=== PATIENT | female | born 1935 | race Caucasian/White ===

== ENCOUNTER 2018-06-09 14:05 | Emergency (ER) | payer OTHER ==
[2018-06-09 14:27] VITALS: BP 140/68; PULSE 56; TEMP 97.7; BMI 23.7
--- NOTE | 2018-06-09 14:27 | PDOC ---
Attending Attestation - Resident Resident Name: AnnieAdi - ED Attending Attestation I have performed the following: I have examined & evaluated the patient, The case was reviewed & discussed with the resident, I agree w/resident's findings & plan, Exceptions are as noted - HPI HPI: 06/09/18 15:40 Patient sustained a cut in the webspace between the second and third digits, right hand, from broken glass. This occurred last night. There is an open wound but no bleeding. No pain. No distal numbness tingling or limited motion or weakness. - Physicial Exam PE: 06/09/18 15:40 Superficial laceration of the webspace between the second and third digits right hand. Sensation in the distribution of the digital nerves intact. Full flexion and extension against resistance PIP and DIP joints. - Medical Decision Making 06/09/18 15:41 Impression: Superficial laceration of the hand Plan: X-ray shows no foreign body and no fracture. The wound was irrigated copiously with normal saline and explored, found to be superficial, with no deep punctures or deep structures involved. The skin was approximated using a snug wrap of petroleum gauze and a dressing was placed. Wound check in 2 days. Rest and elevate until then. After dressing, there was no distal numbness or tingling, no pain, and the patient was completely comfortable at discharge.
--- NOTE | 2018-06-09 14:34 | PDOC ---
History of Present Illness - General Chief Complaint: Injury Stated Complaint: INJURY TO RIGHT HAND Time Seen by Provider: 06/09/18 14:10 History Source: Patient Exam Limitations: No Limitations - History of Present Illness Initial Comments: 06/09/18 14:34 Ms. Brown is a 82 yo F with a hx of multiple cysts on the kidney with CKD stage 4, HTN, and DM who presents to the emergency department after sustaining a laceration between the 2nd and 3rd digit at the MCP joint on the right hand. She states this occurred last night at approximately 10 pm. She was turning off a light when it fell with the bulb shattering, ultimately lacerating her. Denies the following: loss of sensation, loss of motor function, digital swelling, chest pain, SOB, headache, abdominal pain, fevers, chills, and diaphoresis. Pmhx: Refer to above Shx; Hysterectomy with cystocele repair 2016 Allergies: anesthetics Past History - Past Medical History Allergies/Adverse Reactions: Allergies Allergy/AdvReac Type Severity Reaction Status Date / Time No Known Allergies Allergy Verified 06/09/18 16:28 Home Medications: Ambulatory Orders Allopurinol [Zyloprim -] 100 mg PO DAILY 06/09/18 Ezetimibe [Zetia] 10 mg PO DAILY 06/09/18 Glimepiride 1 mg PO DAILY 06/09/18 Latanoprost 0.005% Eye Drops [Xalatan 0.005% Eye Drops -] 1 drop OP HS 06/09/18 Ramipril [Altace] 10 mg PO DAILY 06/09/18 Rosuvastatin Calcium [Crestor] 40 mg PO DAILY 06/09/18 Sitagliptin Phosphate [Januvia] 25 mg PO DAILY 06/09/18 Anemia: Yes Asthma: No Cancer: No Cardiac Disorders: No CVA: No COPD: No CHF: No Dementia: No Diabetes: Yes GI Disorders: Yes (gerd) Disorders: No HTN: Yes Hypercholesterolemia: Yes Liver Disease: No Seizures: No Thyroid Disease: No - Surgical History Abdominal Surgery: No Appendectomy: No Cardiac Surgery: No Cholecystectomy: Yes Lung Surgery: No Neurologic Surgery: No Orthopedic Surgery: No - Suicide/Smoking/Psychosocial Hx Smoking History: Never smoked Review of Systems - Review of Systems Able to Perform ROS?: Yes Constitutional: No: Chills, Diaphoresis, Fever HEENTM: No: Eye Pain, Recent change in vision, Ear Pain, Nose Pain, Throat Pain Respiratory: No: Cough, Shortness of Breath, SOB with Exertion Cardiac (ROS): No: Chest Pain, Lightheadedness, Palpitations ABD/GI: No: Diarrhea, Nausea, Rectal Bleeding, Vomiting, Abdominal cramping, Tarry Stools : No: Burning, Dysuria, Hematuria Musculoskeletal: No: Back Pain Integumentary: Yes: Other (laceration to the right hand between 2nd and 3rd digit). No: Rash Neurological: No: Headache, Numbness, Paresthesia, Tingling, Tremors, Weakness Psychiatric: No: Stressors Endocrine: No: Unexplained Weight Gain Hematologic/Lymphatic: No: Blood Clots *Physical Exam - Physical Exam General Appearance: Yes: Nourished, Appropriately Dressed HEENT: positive: EOMI, MANDIE Neck: positive: Trachea midline. negative: Lymphadenopathy (R), Lymphadenopathy (L) Respiratory/Chest: positive: Lungs Clear, Normal Breath Sounds Cardiovascular: positive: Regular Rhythm, Regular Rate, S1, S2. negative: Systolic Murmur Vascular Pulses: Dorsalis-Pedis (R): 3+, Doralis-Pedis (L): 3+ Gastrointestinal/Abdominal: positive: Normal Bowel Sounds. negative: Tender Musculoskeletal: positive: Normal Inspection. negative: CVA Tenderness Extremity: positive: Normal Capillary Refill, Normal Range of Motion, Other ( laceration between the 2nd and 3rd digit MCP joint space on the right side with skin flap that is avascularized and clean margins without purulent discharge or active bleeding). negative: Erythema Integumentary: positive: Normal Color, Dry, Warm Neurologic: positive: inside sales II-XII NML intact, Fully Oriented, Alert, Motor Strength 5/5 Procedures - Laceration/Wound Repair Right Finger 2nd digit Wound Length: to 2.5 cm Wound Explored: clean, no foreign body present Wound's Depth, Shape: superficial Irrigated w/ Saline: Yes Betadine Prep: No Wound Debrided: minimal Number of Sutures: 0 Layer Closure: No Sterile Dressing Applied: Yes Splint Applied: Yes Sling Applied: No Medical Decision Making - Medical Decision Making 06/09/18 14:43 82 yo F presenting to the emergency department with laceration in the webspace between the 2nd and 3rd digit on the right hand. Work up: hand xray of the right hand ordered to rule out foreign body retention. On xray, it was read by me and I see no foreign bodies retained. No fractures of the metacarpals or phalanges. The laceration is superficial and the flap tissue was avascularized and was closely approximated to the skin. Petroleum dressing curad was placed around the site of the laceration after washing the laceration sight with 500 cc of saline water under high pressure. A curlex was placed over the hand. The patient was instructed to return to the emergency department in 48 hours for wound check. She was instructed to return to the emergency department beforehand if new concerning symptoms arise such as loss of sensation or fevers develop. Patient agreed and this was also relayed to her daughter. Disposition: Home 06/09/18 15:47 *DC/Admit/Observation/Transfer Diagnosis at time of Disposition: Laceration - Discharge Dispostion Disposition: HOME Condition at time of disposition: Stable Decision to Admit order: No - Referrals Referrals: Ronald Elias MD [Primary Care Provider] - - Patient Instructions Additional Instructions: You have been seen in the emergency department for a laceration to the right hand. Please return to the emergency department 48 hours from discharge ( anytime on Thursday) for a wound check. Please return to the emergency department if you develop new concerning symptoms such as fevers or loss of sensation in the fingers and persistence of symptoms such as worsening of pain or profuse bleeding. Please keep the sight of the bandage and laceration dry for the next 48 hours. Also keep it elevated when possible. Thank you for visiting our emergency department here at [facility]. - Post Discharge Activity
[2018-06-09] MEDS ORDERED: DIPHTH,PERTUSS(ACELL),TET 0.5 ML DISP.SYRIN IM ONE (16:11)
== END 2018-06-09 16:30 | disposition home or self-care (01) ==
LOC: SUPCPDRO 14:05 → FER 14:05
PROC: 3E0234Z Introduction of Serum, Toxoid and Vaccine into Muscle, Percutaneous Approach (ICD-10-PCS; principal; 2018-06-09)
DX: S61.411A Laceration without foreign body of right hand, initial encounter (principal); W25.XXXA Contact with sharp glass, initial encounter; Y93.89 Activity, other specified; Y92.009 Unspecified place in unspecified non-institutional (private) residence as the place of occurrence of the external cause; I12.9 Hypertensive chronic kidney disease with stage 1 through stage 4 chronic kidney disease, or unspecified chronic kidney disease; E11.22 Type 2 diabetes mellitus with diabetic chronic kidney disease; N18.9 Chronic kidney disease, unspecified; E78.00 Pure hypercholesterolemia, unspecified
CPT/HCPCS: 73130-TC-RT-FY; 90715; 99282-25

== ENCOUNTER 2018-06-11 13:18 | Emergency (ER) | payer OTHER ==
--- NOTE | 2018-06-11 13:32 | PDOC ---
History of Present Illness - General Chief Complaint: Revisit,Wound Recheck Stated Complaint: WOUND CHECK RIGHT HAND Time Seen by Provider: 06/11/18 13:19 History Source: Patient Exam Limitations: No Limitations - History of Present Illness Initial Comments: 06/11/18 13:29 Patient is 82F with history of HTN, DM, CKD here today for a wound check on her right hand. Patient fell and broke class against her hand two days ago. Repair was without stitches due to avulsed tissue. Denies fevers, chills, hand numbness /weakness, redness. Past History - Past Medical History Allergies/Adverse Reactions: Allergies Allergy/AdvReac Type Severity Reaction Status Date / Time No Known Allergies Allergy Verified 06/11/18 13:19 Home Medications: Ambulatory Orders Allopurinol [Zyloprim -] 100 mg PO DAILY 06/09/18 Ezetimibe [Zetia] 10 mg PO DAILY 06/09/18 Glimepiride 1 mg PO DAILY 06/09/18 Latanoprost 0.005% Eye Drops [Xalatan 0.005% Eye Drops -] 1 drop OP HS 06/09/18 Ramipril [Altace] 10 mg PO DAILY 06/09/18 Rosuvastatin Calcium [Crestor] 40 mg PO DAILY 06/09/18 Sitagliptin Phosphate [Januvia] 25 mg PO DAILY 06/09/18 Anemia: Yes Asthma: No Cancer: No Cardiac Disorders: No CVA: No COPD: No CHF: No Dementia: No Diabetes: Yes GI Disorders: Yes (gerd) Disorders: No HTN: Yes Hypercholesterolemia: Yes Liver Disease: No Seizures: No Thyroid Disease: No - Surgical History Abdominal Surgery: No Appendectomy: No Cardiac Surgery: No Cholecystectomy: Yes Lung Surgery: No Neurologic Surgery: No Orthopedic Surgery: No - Immunization History Immunization Up to Date: Yes - Suicide/Smoking/Psychosocial Hx Smoking History: Never smoked Have you smoked in the past 12 months: No Information on smoking cessation initiated: No Hx Alcohol Use: No Drug/Substance Use Hx: No Substance Use Type: None Review of Systems - Review of Systems Comments:: 06/11/18 13:30 GENERAL/CONSTITUTIONAL: No fever or chills. No weakness. HEAD, EYES, EARS, NOSE AND THROAT: No change in vision. No sore throat. CARDIOVASCULAR: No chest pain or shortness of breath RESPIRATORY: No cough, wheezing, or hemoptysis. GASTROINTESTINAL: No nausea, vomiting, diarrhea or constipation. GENITOURINARY: No dysuria, frequency, or change in urination. MUSCULOSKELETAL: No joint or muscle swelling or pain. No neck or back pain. SKIN: No rash NEUROLOGIC: No headache, vertigo, loss of consciousness, or change in strength/ sensation. ALLERGIC/IMMUNOLOGIC: No hives or skin allergy. *Physical Exam - Vital Signs Last Vital Signs Temp Pulse Resp BP Pulse Ox 98.5 F 66 16 124/74 97 06/11/18 13:19 06/11/18 13:19 06/11/18 13:19 06/11/18 13:19 06/11/18 13:19 - Physical Exam Comments: 06/11/18 13:30 GENERAL: Awake, alert, and fully oriented, in no acute distress R HAND: Avulsed wound in web of fingers between 2nd and 3rd digit. No erythema, tenderness. Neurovascularly intact. HEAD: No signs of trauma, normocephalic, atraumatic EYES: PERRLA, EOMI, sclera anicteric, conjunctiva clear ENT: Auricles normal inspection, hearing grossly normal, nares patent, oropharynx clear without exudates. Moist mucosa NECK: Normal ROM, supple, no lymphadenopathy, JVD, or masses LUNGS: No distress, speaks full sentences, clear to auscultation bilaterally HEART: Regular rate and rhythm, normal S1 and S2, no murmurs, rubs or gallops, peripheral pulses normal and equal bilaterally. ABDOMEN: Soft, nontender, normoactive bowel sounds. No guarding, no rebound. No masses EXTREMITIES: Normal inspection, Normal range of motion, no edema. No clubbing or cyanosis. NEUROLOGICAL: Cranial nerves II through XII grossly intact. Normal speech, normal gait, no focal sensorimotor deficits SKIN: Warm, Dry, normal turgor, no rashes or lesions noted. Medical Decision Making - Medical Decision Making 06/11/18 13:31 Patient is 82F with history of HTN, DM, CKD here today for wound check. Appears well. Dressed with bacitracin, tefla and gauze. Discharged home with return precautions. *DC/Admit/Observation/Transfer Diagnosis at time of Disposition: Visit for wound check - Discharge Dispostion Disposition: HOME Condition at time of disposition: Good Decision to Admit order: No - Referrals - Patient Instructions Printed Discharge Instructions: DI for Avulsion Laceration (Not Requiring Sutures) Additional Instructions: Please return if you have any new, worsening or concerning symptoms, especially fever, spreading redness and discharge. Please follow up with your primary care doctor or the ED in 4 days (06/15/18) - Post Discharge Activity
[2018-06-11 13:36] VITALS: BP 124/74; PULSE 66; TEMP 98.5; BMI 23.3
--- NOTE | 2018-06-11 13:38 | PDOC ---
Attending Attestation - Resident Resident Name: LamontMarkus velazquez - ED Attending Attestation I have performed the following: I have examined & evaluated the patient, The case was reviewed & discussed with the resident, I agree w/resident's findings & plan, Exceptions are as noted - HPI HPI: 06/11/18 13:35 Agree with Residents HPI - Physicial Exam PE: 06/11/18 13:35 Agree with residents PE - Medical Decision Making 06/11/18 13:35 Patient presents for wound check no evidence of infection large area between webbing healing through secondary intention recommend repeat wound check in 2-4 days given history diabetes no indication for antibiotics at this time bacitracin placed over wound. Findings, need for follow-up and strict return instructions discussed with patient.
== END 2018-06-11 13:43 | disposition home or self-care (01) ==
LOC: FER 13:18
DX: Z48.01 Encounter for change or removal of surgical wound dressing (principal); I10 Essential (primary) hypertension; E11.9 Type 2 diabetes mellitus without complications; E78.00 Pure hypercholesterolemia, unspecified
CPT/HCPCS: 99281-25

== ENCOUNTER 2018-06-15 14:19 | Emergency (ER) | payer OTHER ==
[2018-06-15 14:28] VITALS: BP 150/78; PULSE 59; TEMP 98.7; BMI 23.3
--- NOTE | 2018-06-15 14:36 | PDOC ---
*Physical Exam - Vital Signs Last Vital Signs Temp Pulse Resp BP Pulse Ox 98.7 F 59 L 16 150/78 100 06/15/18 14:19 06/15/18 14:19 06/15/18 14:19 06/15/18 14:19 06/15/18 14:19 - Physical Exam Integumentary: positive: Other (Status post laceration to finger healing well no evidence of infection) Medical Decision Making - Medical Decision Making 06/15/18 14:38 82 years old hypertension diabetes chronic kidney disease status post laceration to her right hand on June 09 presents for second wound check. Healing well no evidence of infection no pain no complaints at this time ROS: A complete review of 10 out of 10 review of systems is taken and is negative apart from what is previously mentioned below and in the HPI. Patient no longer needs return for recheck will follow-up with her doctor or Dr. Jason andrade within 1 week very strict infection return instructions discussed with patient. Findings, need for follow-up, strict return instructions discussed with patient. *DC/Admit/Observation/Transfer Diagnosis at time of Disposition: Laceration, Visit for wound check - Discharge Dispostion Disposition: HOME Condition at time of disposition: Stable Decision to Admit order: No - Referrals Referrals: Robbie Gomez MD [Staff Physician] - - Patient Instructions Printed Discharge Instructions: DI for Wound Infection Additional Instructions: Continue bacitracin twice a day. Keep dry and covered just possible. Follow-up with Dr. Jason andrade within 1 week. Return to emergency department for any redness swelling bleeding Poss fever streaking red lines signs of infection or for any concerns. Follow-up with your primary care provider next week as well. - Post Discharge Activity
== END 2018-06-15 15:03 | disposition home or self-care (01) ==
LOC: FER 14:19
DX: Z48.01 Encounter for change or removal of surgical wound dressing (principal)
CPT/HCPCS: 99281-25

== ENCOUNTER 2018-07-01 14:54 | Emergency (ER) | payer OTHER ==
[2018-07-01 15:03] VITALS: BP 120/83; PULSE 58; TEMP 97.6; BMI 22.7
--- NOTE | 2018-07-01 15:26 | PDOC ---
History of Present Illness - General Chief Complaint: Revisit,Wound Recheck Stated Complaint: WOUND CHECK Time Seen by Provider: 07/01/18 15:09 - History of Present Illness Initial Comments: The patient is an 82F who presents for evaluation of R hand wound. The patient cut her hand on glass approximately three weeks ago, has been seen in the ED several times since then for wound checks, is at [facility] today for a scheduled CT and wanted to have her wound evaluated. The patient denies increased pain, drainage from the wound, or fevers. She denies any new symptoms but is concerned about how long it is taking to heal. She is keeping a band-aid on the wound and reports washing it daily. 07/01/18 15:26 Past History - Past Medical History Allergies/Adverse Reactions: Allergies Allergy/AdvReac Type Severity Reaction Status Date / Time No Known Allergies Allergy Verified 07/01/18 14:54 Home Medications: Ambulatory Orders Allopurinol [Zyloprim -] 100 mg PO DAILY 06/09/18 Ezetimibe [Zetia] 10 mg PO DAILY 06/09/18 Glimepiride 1 mg PO DAILY 06/09/18 Latanoprost 0.005% Eye Drops [Xalatan 0.005% Eye Drops -] 1 drop OP HS 06/09/18 Ramipril [Altace] 10 mg PO DAILY 06/09/18 Rosuvastatin Calcium [Crestor] 40 mg PO DAILY 06/09/18 Sitagliptin Phosphate [Januvia] 25 mg PO DAILY 06/09/18 Aspirin [Aspirin EC] 81 mg PO DAILY 07/01/18 Anemia: Yes Asthma: No Cancer: No Cardiac Disorders: No CVA: No COPD: No CHF: No Dementia: No Diabetes: Yes GI Disorders: Yes (gerd) Disorders: No HTN: Yes Hypercholesterolemia: Yes Liver Disease: No Seizures: No Thyroid Disease: No - Surgical History Abdominal Surgery: No Appendectomy: No Cardiac Surgery: No Cholecystectomy: Yes Lung Surgery: No Neurologic Surgery: No Orthopedic Surgery: No - Immunization History Td Vaccination: Yes Immunization Up to Date: Yes - Suicide/Smoking/Psychosocial Hx Smoking History: Never smoked Have you smoked in the past 12 months: No Hx Alcohol Use: No Drug/Substance Use Hx: No Substance Use Type: None Review of Systems - Review of Systems Able to Perform ROS?: Yes Comments:: GENERAL/CONSTITUTIONAL: No fever or chills. No weakness HEAD, EYES, EARS, NOSE AND THROAT: No change in vision. No ear pain or discharge. No sore throat CARDIOVASCULAR: No chest pain or shortness of breath RESPIRATORY: No cough, wheezing, or hemoptysis GASTROINTESTINAL: No nausea, vomiting, diarrhea or constipation GENITOURINARY: No dysuria, frequency, or change in urination SKIN: per HPI NEUROLOGIC: No headache, vertigo, loss of consciousness, or change in strength/ sensation ENDOCRINE: No increased thirst. No abnormal weight change HEMATOLOGIC/LYMPHATIC: No anemia, easy bleeding, or history of blood clots ALLERGIC/IMMUNOLOGIC: No hives or skin allergy 07/01/18 15:28 Is the patient limited [place] proficient: No *Physical Exam - Vital Signs Last Vital Signs Temp Pulse Resp BP Pulse Ox 97.6 F 58 L 18 120/83 99 07/01/18 14:54 07/01/18 14:54 07/01/18 14:54 07/01/18 14:54 07/01/18 14:54 - Physical Exam Comments: GENERAL: Awake, alert, and fully oriented, in no acute distress HEAD: No signs of trauma, normocephalic, atraumatic EYES: PERRL, EOMI, sclera anicteric, conjunctiva clear ENT: Hearing grossly normal, nares patent, oropharynx clear without exudates. Moist mucosa LUNGS: Breathing comfortably on room air with symmetric chest rise HEART:Regular rate and rhythm, peripheral pulses normal and equal bilaterally NEUROLOGICAL: Cranial nerves II through XII grossly intact. Normal speech, no focal sensorimotor deficits RUE: Inspection: Small well healing wound at 3rd-4th interdigit space. Wound is well granulated in the center w/o erythema, fluctuance, drainage, or TTP. Compartments soft and compressible, pain within proportion, no pain to passive stretch Sensation: sensation present to light touch m/r/u n Motor: intact AIN/PIN/Ulnar in hand; 5/5 Wrist flex/ext; 5/5 Elbow flex/ext; 5/ 5 Shoulder ABd,Flex Vascular: 2+ radial pulse palpated, BCR all fingers <2 sec. LUE: Inspection: No erythema or ecchymosis. No tenderness, no obvious abnormalities, no open wounds. Compartments soft and compressible, pain within proportion, no pain to passive stretch Sensation: sensation present to light touch m/r/u n Motor: intact AIN/PIN/Ulnar in hand; 5/5 Wrist flex/ext; 5/5 Elbow flex/ext; 5/ 5 Shoulder ABd,Flex Vascular: 2+ radial pulse palpated, BCR all fingers <2 sec. 07/01/18 15:36 Medical Decision Making - Medical Decision Making The patient is an 82F who presents for evaluation of R hand wound ED Course Patient's wound is healing well w/o signs of infection Wound care instructions given Patient also given return precautions and instructed that she does not need to return regularly as the wound is healing well, is not open, and does not appear to be at a high risk of infection at this time Plan for DC Patient is in agreement and verbalized understanding Dispo: Home 07/01/18 15:37 *DC/Admit/Observation/Transfer Diagnosis at time of Disposition: Visit for wound check - Discharge Dispostion Disposition: HOME Condition at time of disposition: Stable Decision to Admit order: No - Referrals Referrals: Ronald Elias MD [Primary Care Provider] - - Patient Instructions Printed Discharge Instructions: Minor Wounds (Alternative Therapy) Additional Instructions: You were seen today for a wound check. Your wound does not have signs of infection and appears to be healing well. Continue to wash the are everyday with soap and running water. Not necessary to scrub the wound. You may place Neosporin or Bacitracin on the wound daily if needed. Please return to the Emergency Department if you notice increased redness, swelling, increased pain, or any new/concerning symptoms. - Post Discharge Activity
--- NOTE | 2018-07-01 15:35 | PDOC ---
Attending Attestation - Resident Resident Name: Aguilar Arvizu - ED Attending Attestation I have performed the following: I have examined & evaluated the patient, The case was reviewed & discussed with the resident, I agree w/resident's findings & plan - HPI HPI: 07/01/18 15:28 82y/o F with 3rd/4th web space injury with glass sustained earlier this month presents for another wound check since she was in the hospital for an outpt CT. she has occasional discomfort to the area, and is wondering why. no motor/ sensory deficit or concern for infection. it is healing well otherwise. - Physicial Exam PE: 07/01/18 15:31 vss, afebrile well appearing R hand: well healing lesion in 3rd/4th webspace, superficial abrasion remaining with only most external epidermal layer forming. 2mm central scab remaining, no deep tissue exposure, no redness/swelling/ttp. FROM all digits with full strength. - Medical Decision Making 07/01/18 15:35 82 y/o F with well healing skin lesion to R hand. no evidence of infection or neurovascular compromised. I reviewed the report and images of the prior xray and confirmed no foreign body or fracture. pt reassured, counseled regarding signs of infection and return criteria. Can f/u with hand if sxs persist or worsen
== END 2018-07-01 15:30 | disposition home or self-care (01) ==
LOC: FER 14:54
DX: Z48.01 Encounter for change or removal of surgical wound dressing (principal)
CPT/HCPCS: 99283-25